=== PATIENT | female | born 1940 | race Caucasian/White ===

== ENCOUNTER 2016-12-18 11:22 | Emergency (ER) | payer MEDICARE ==
[~2016-12-18] VITALS: Ht 162.6 cm; Wt 67.0 kg
[~2016-12-18 11:22] MED LIST: ALPR.5T PO; AMOX25TA PO; ASPI325T4 PO; ATOR40TA2 PO; CLIN-79 PO; CPR500T PO; CYCL-265 PO; DOXY100T41 PO; IBUP-30 PO; LISI-595 PO; LSNP20T PO; MTP25TSR PO; [UNRECOGNIZED DRUG - CODE] PO
[2016-12-18] MEDS ORDERED: ALBUTEROL 0.083% NEB SOLUTION 2.5 MG/3 ML VIAL INH ONE (11:55)
[2016-12-18 12:53] LABS: BASOPHILS % (AUTO) 0 % (0-2); EOSINOPHILS % (AUTO) 0 % (0-4); LYMPHOCYTES # (AUTO) 0.8 X10^3; MEAN CORPUSCULAR HEMOGLOBIN 30.2 PG (26.0-34.0); MEAN CORPUSCULAR HGB CONC 33.5 g/dL (31.0-37.0); MEAN CORPUSCULAR VOLUME 90 FL (80-100); MONOCYTES # (AUTO) 0.8 X10^3; MONOCYTES % (AUTO) 12 % (3-11); NEUTROPHILS # (AUTO) 5.2 X10^3; NEUTROPHILS % (AUTO) 76 % (51-67); PLATELET COUNT 181 10^3uL (150-450); WHITE BLOOD COUNT 6.85 10^3uL (4.0-11.0)
--- NOTE | 2016-12-18 13:03 | NUR ---
Patient is shivering, warm blankets applied. Had just returned from radiology. Temp 97 temporal.
[2016-12-18 13:12] LABS: ALBUMIN 3.8 g/dL (3.4-5.0); ANION GAP 18.7 MEQ/L (3-15); CALCULATED IONIZED CALCIUM 3.9 mg/dL (3.8-4.6); TOTAL PROTEIN 6.9 g/dL (6.4-8.5)
[2016-12-18 13:12] LABS: BILIRUBIN,URINE 1+ (Negative); CLARITY,URINE Cloudy; COLOR,URINE Dark Yellow; GLUCOSE, URINE (UA) Negative (Negative); LEUKOCYTE ESTERASE ,URINE 1+ (Negative); UROBILINOGEN,URINE 0.2 mg/dL (0.2-1.0)
--- NOTE | 2016-12-18 13:41 | Diagnostic Imaging Report ---
INDICATION: Cough. TECHNIQUE: A portable AP view of the chest was obtained at 1251 hours. COMPARISON: 12/02/2014. FINDINGS: There is suboptimal inspiration with linear density in the lung bases which may represent atelectasis or scarring. No pneumothorax or consolidation is identified. IMPRESSION: There is linear atelectasis and/or scarring in the lung bases without evidence of acute abnormality. Dictated by: Dictated on workstation # [id number]
--- NOTE | 2016-12-18 13:44 | Diagnostic Imaging Report ---
INDICATION: Patient with falls and confusion. TECHNIQUE: An axial CT scan of the brain was performed without IV contrast. Sagittal and coronal reformatted images were created. COMPARISON: None. FINDINGS: There is no evidence of acute cerebral infarct, intracranial hemorrhage, or gross mass effect. There are subtle focal and patchy areas of low-attenuation white matter changes in both cerebral hemispheres, likely representing chronic small vessel ischemic disease. There is normal verde/white matter distinction. The brain parenchymal volume appears appropriate for the patient's age. There is no significant midline shift or herniation. There is no evidence of hydrocephalus. The basal cisterns are unremarkable. The skull, extracranial soft tissue, and orbits are unremarkable. The paranasal sinuses are unremarkable. There is debris or cerumen involving the right external auditory canal. IMPRESSION: 1. There is no evidence of an acute intracranial process. 2. Age-related brain parenchymal changes. Dictated by: Dictated on workstation # [id number]
--- NOTE | 2016-12-18 13:45 | Diagnostic Imaging Report ---
CLINICAL INDICATION: Patient with falls and confusion. EXAM: Axial CT scan of the lumbar spine performed without IV contrast. Coronal and sagittal reformatted images were created. COMPARISON: None. FINDINGS: There is no evidence of acute lumbar spine fracture or dislocation. There is dextroscoliosis of the lumbar spine with apex at the L3 vertebral body level. There is hypertrophic spurs seen throughout the lumbar spine which is severely hypertrophic involving the far left lateral aspect of the L2-3 level with disc spurs. There is severe loss of intervertebral disc height involving the left side of the L2-L3 endplates which correlates to the dextroscoliosis. There is no significant paraspinal soft tissue abnormality. T12-L1: There is a diffuse disc bulge with disc extrusion/herniation component extending into the right foraminal region. There is moderate right neural foramen narrowing. There is mild central canal narrowing. There is bilateral facet arthropathy and ligamentum flavum buckling. L1-L2: There is a diffuse disc bulge with disc extrusion/herniation in the far left lateral region and encroaches upon the left neural foramen. There is bilateral facet arthropathy and ligamentum flavum buckling. There is at least mild central canal narrowing. There is mild to moderate left neural foramen narrowing and mild right neural foramen narrowing. L2-3: There is a diffuse disc bulge with severe left-sided intervertebral disc height loss with hypertrophic disc spurs in the far left lateral region. There is no gross significant central canal narrowing. There is no significant right neural foramen narrowing. There is moderate to severe left neural foramen narrowing. L3-4: There is a diffuse disc bulge with moderate bilateral facet arthropathy with hypertrophic changes on the left and ligamentum flavum buckling. There is moderate to severe central canal narrowing. There is mild to moderate right neural foramen narrowing and severe left neural foramen narrowing. L4-5: There is a diffuse disc bulge with severe bilateral facet arthropathy. There is at least small central canal narrowing and mild to moderate bilateral neural foramen narrowing. L5-S1: There is suggestion of a diffuse disc bulge with moderate bilateral facet arthropathy/hypertrophy. There is no significant central canal narrowing. There is at least moderate right neural foramen narrowing and no significant left neural foramen narrowing. IMPRESSION: 1: There is no evidence of acute lumbar spine fracture or dislocation. 2: There is dextroscoliosis of the lumbar spine with moderate to severe multilevel degenerative disc disease described in detail above. Dictated by: Dictated on workstation # [id number]
[2016-12-18 13:57] LABS: URINE CENTRIFUGED VOLUME 12 mL
[2016-12-18] MEDS ORDERED: cefTRIAXone SODIUM 1,000 MG in SODIUM CHLORIDE 50 ML IV ONE (14:05)
[2016-12-18] MEDS ORDERED: CEPH-331 PO ×2 (14:11→14:25)
[2016-12-18 14:21] VITALS: BP 131/88
== END 2016-12-18 14:50 | disposition home or self-care (01) ==
LOC: EDUNIT# 11:22 → ED 11:24
DX: N39.0 Urinary tract infection, site not specified (principal); Z91.81 History of falling; Z85.3 Personal history of malignant neoplasm of breast; M81.0 Age-related osteoporosis without current pathological fracture; R53.1 Weakness; Z79.82 Long term (current) use of aspirin; R05 Cough
CPT/HCPCS: 36415; 70450; 71010; 72131; 80053; 81003; 81015; 82550; 83605; 84484; 85025; 85610; 85730; 86140; 87040; 87088; 93005; 94640; 96361; 96365; 99284; J0696; J7030; J7613; 87077; 87186; 93010; 99285